=== PATIENT | female | born 2005 | race Asian ===

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

== ENCOUNTER 2023-01-18 18:42 | Outpatient (CLI) | payer OTHER, SELFPAY | END 2023-01-18 18:43 | disposition home or self-care (01) | LOC: LBO 18:44 | DX: F32.9 Major depressive disorder, single episode, unspecified (principal) | CPT/HCPCS: 36415; 80053; 82306; 82728; 84439; 84443; 85025 ==

== ENCOUNTER 2023-04-22 15:26 | Outpatient (CLI) | payer OTHER, SELFPAY | END 2023-04-22 15:27 | disposition home or self-care (01) | LOC: LBO 15:27 | DX: F41.8 Other specified anxiety disorders (principal); Z72.89 Other problems related to lifestyle | CPT/HCPCS: 36415; 84439; 84443 ==